=== PATIENT | female | born 1950 | race Caucasian/White ===

== ENCOUNTER 2017-06-24 16:09 | Emergency (ER) | payer BC ==
[2017-06-24] MEDS ORDERED: IBUPROFEN 600 MG TABLET (FP) PO ONE (16:14)
[2017-06-24 16:15] VITALS: BP 144/63; PULSE 78; TEMP 99.2; BMI 26.6
--- NOTE | 2017-06-24 18:22 | PDOC ---
History of Present Illness - General Chief Complaint: Pain, Acute Stated Complaint: KNEE INJURY Time Seen by Provider: 06/24/17 16:10 History Source: Patient Exam Limitations: No Limitations - History of Present Illness Initial Comments: 06/24/17 18:18 67 yr female slipped today and twisted her right knee. pt did not directly fall , states she felt "a pop" and has 10/10 pain. Occurred: reports: this afternoon Severity: Yes: moderate Lower Extremity Pain Location: right: knee Method of Injury: Yes: twisted Lower Ext. Injury Location - Specific Injury Location Knees: right pain Past History - Past Medical History Allergies/Adverse Reactions: Allergies Allergy/AdvReac Type Severity Reaction Status Date / Time erythromycin base Allergy Verified 06/24/17 16:11 Home Medications: Ambulatory Orders Docusate Sodium [Colace -] 300 mg PO HS #60 capsule 10/25/14 Insulin (Levemir) [Levemir Flexpen -] 8 units SQ HS #1 pen 10/25/14 Insulin (Levemir) [Levemir Flexpen -] 12 units SQ AM #1 pen 10/25/14 Losartan Potassium 0 mg PO ASDIR #30 tablet 10/25/14 Oxycodone HCl [Roxicodone -] 10 mg PO Q4H PRN #10 tablet 10/25/14 Naproxen [Naprosyn] 500 mg PO BID PRN #14 tablet 06/24/17 Oxycodone HCl/Acetaminophen [Percocet 5-325 mg Tablet] 1 tab PO Q6H PRN #10 tablet MDD 4 tabs 06/24/17 COPD: No Diabetes: Yes (neuropathy) HTN: Yes Hypercholesterolemia: Yes - Surgical History Abdominal Surgery: Yes (hernia) Orthopedic Surgery: Yes (Lt knee replacement 2005) - Suicide/Smoking/Psychosocial Hx Smoking History: Current every day smoker Have you smoked in the past 12 months: Yes Number of Cigarettes Smoked Daily: 5 Information on smoking cessation initiated: No Hx Alcohol Use: No Drug/Substance Use Hx: No Review of Systems - Review of Systems Able to Perform ROS?: Yes Is the patient limited [place] proficient: No Constitutional: No: Symptoms Reported HEENTM: No: Symptoms Reported Respiratory: No: Symptoms reported Cardiac (ROS): No: Symptoms Reported ABD/GI: No: Symptoms Reported : No: Symptoms Reported Musculoskeletal: Yes: Symptoms Reported *Physical Exam - Vital Signs Last Vital Signs Temp Pulse Resp BP Pulse Ox 99.2 F 78 16 144/63 96 06/24/17 16:12 06/24/17 16:12 06/24/17 16:12 06/24/17 16:12 06/24/17 16:12 - Physical Exam General Appearance: Yes: Nourished HEENT: positive: EOMI, MARCY Neck: positive: Supple Respiratory/Chest: positive: Lungs Clear, Normal Breath Sounds Cardiovascular: positive: Regular Rhythm, Regular Rate Musculoskeletal: positive: Normal Inspection Extremity: positive: Normal Capillary Refill, Tender (lateral patella with mild STS, no deformity ) Integumentary: positive: Normal Color, Dry, Warm 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: 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 NML intact, Fully Oriented, Alert, Normal Mood/ Affect ED Treatment Course - Medications Given in the ED: ED Medications Discontinued Medications Generic Name Dose Route Start Last Admin Trade Name Freq PRN Reason Stop Dose Admin Ibuprofen 600 mg 06/24/17 16:14 06/24/17 16:25 Motrin - PO 06/24/17 16:15 600 mg ONCE ONE Administration Oxycodone/Acetaminophen 1 combo 06/24/17 17:42 06/24/17 17:44 Percocet 5/325 - PO 06/24/17 17:43 1 combo ONCE ONE Administration Medical Decision Making - Medical Decision Making 06/24/17 18:26 67 yr old female with c/o right knee injury twisted the knee at home after slipping xray ordered in [facility] pain meds given 06/24/17 18:48 xray reviewed is negative for fracture dislocation dc inst given to pt and her who are comfortable with the dc plan all questions asked and answered at discharge. pt ambulatory with the immobilizer in place and the assitance of her . 06/24/17 20:06 *DC/Admit/Observation/Transfer Diagnosis at time of Disposition: Knee sprain Qualifiers: Encounter type: initial encounter Involved ligament of knee: lateral collateral ligament Laterality: right Qualified Code(s): S83.421A - Sprain of lateral collateral ligament of right knee, initial encounter - Discharge Dispostion Disposition: HOME Condition at time of disposition: Good - Prescriptions Prescriptions: Naproxen [Naprosyn] 500 mg PO BID PRN #14 tablet PRN Reason: Pain Oxycodone HCl/Acetaminophen [Percocet 5-325 mg Tablet] 1 tab PO Q6H PRN #10 tablet MDD 4 tabs PRN Reason: Severe Pain - Referrals Referrals: Abraham Holland MD [Primary Care Provider] - Miguel Menjivar MD [Staff Physician] - - Patient Instructions Additional Instructions: elevate and apply ice every 2hrs for 20 minutes use the splint at all times except to bathe take percocet for severe pain take naprosyn for mild to moderate pain follow with the orthopedist across the street or ning your orthopedist follow up next week - Post Discharge Activity
== END 2017-06-24 19:09 | disposition home or self-care (01) ==
LOC: JERFT 16:09
DX: S83.421A Sprain of lateral collateral ligament of right knee, initial encounter (principal); W01.0XXA Fall on same level from slipping, tripping and stumbling without subsequent striking against object, initial encounter; Y93.89 Activity, other specified; Y99.8 Other external cause status; I10 Essential (primary) hypertension; E78.00 Pure hypercholesterolemia, unspecified; E11.40 Type 2 diabetes mellitus with diabetic neuropathy, unspecified; Z79.4 Long term (current) use of insulin; Y92.038 Other place in apartment as the place of occurrence of the external cause
CPT/HCPCS: 73562-TC-RT; 99281-25

== ENCOUNTER 2023-11-02 04:21 | Day surgery (SDC) | payer OTHER, BC ==
[2023-11-01 12:51] VITALS: BMI 26.6
[2023-11-02 10:02] VITALS: TEMP 97.7
[2023-11-02 10:41] VITALS: PULSE 65
[2023-11-02 10:43] VITALS: BP 108/51; RESP 18
== END 2023-11-02 10:43 | disposition home or self-care (01) ==
LOC: JASU-ENDO 04:21
PROVIDERS: ATTEND Internal Medicine Gastroenterology
PROC: 0DBP8ZX Excision of Rectum, Via Natural or Artificial Opening Endoscopic, Diagnostic (ICD-10-PCS; principal; 2023-11-02 10:00)
DX: Z12.11 Encounter for screening for malignant neoplasm of colon (principal); D12.8 Benign neoplasm of rectum; K64.4 Residual hemorrhoidal skin tags; K64.8 Other hemorrhoids; I10 Essential (primary) hypertension; E11.9 Type 2 diabetes mellitus without complications; Z79.4 Long term (current) use of insulin; Z79.84 Long term (current) use of oral hypoglycemic drugs
CPT/HCPCS: 82962; 88305-TC

== ENCOUNTER 2023-12-13 04:31 | Day surgery (SDC) | payer OTHER, BC ==
[2023-12-09 12:42] VITALS: BMI 27.2
[2023-12-13 09:31] VITALS: TEMP 98
[2023-12-13 10:12] VITALS: BP 129/58; PULSE 66; RESP 14
== END 2023-12-13 10:35 | disposition home or self-care (01) ==
LOC: JASU-ENDO 04:31
PROVIDERS: ATTEND Internal Medicine Gastroenterology
PROC: 0DJD8ZZ Inspection of Lower Intestinal Tract, Via Natural or Artificial Opening Endoscopic (ICD-10-PCS; principal; 2023-12-13 09:00)
DX: Z12.11 Encounter for screening for malignant neoplasm of colon (principal); K56.41 Fecal impaction; K64.8 Other hemorrhoids; Z53.8 Procedure and treatment not carried out for other reasons
CPT/HCPCS: 82962

== ENCOUNTER 2024-01-09 05:27 | Day surgery (SDC) | payer OTHER, BC ==
[2024-01-04 11:24] VITALS: BMI 28.1
[2024-01-09 10:13] VITALS: TEMP 98.1
[2024-01-09 11:10] VITALS: RESP 18
[2024-01-09 11:13] VITALS: BP 132/65; PULSE 60
== END 2024-01-09 11:09 | disposition home or self-care (01) ==
LOC: JASU-ENDO 05:27
PROVIDERS: ATTEND Internal Medicine Gastroenterology
PROC: 0DJD8ZZ Inspection of Lower Intestinal Tract, Via Natural or Artificial Opening Endoscopic (ICD-10-PCS; principal; 2024-01-09 09:00)
DX: Z12.11 Encounter for screening for malignant neoplasm of colon (principal); K59.89 Other specified functional intestinal disorders; I10 Essential (primary) hypertension; E11.9 Type 2 diabetes mellitus without complications; Z79.4 Long term (current) use of insulin
CPT/HCPCS: 82962